=== PATIENT | male | born 1955 | race Caucasian/White ===

== ENCOUNTER 2019-07-25 14:00 | Emergency (ER) | payer BC ==
--- OUTSIDE RECORDS SUMMARY | 2019-07-25 14:05 | XMS REPORT | Continuity of Care Document ---
:1955 External Reference #:[id number] Author Name Rui Rouse M.D. 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 Problems Description No Information Available Social History Type Date Description Comments Sex Unknown ETOH Use Drinks 3 Alcoholic Beverages Per Week Tobacco Use Start: Unknown Patient has never smoked Smoking Status Reviewed: 06/22/19 Patient has never smoked Exercise Type/Frequency Exercises regularly Allergies, Adverse Reactions, Alerts Active Allergies Reaction Severity Comments Date Sulfa Antibiotics childhood reaction unknown 09/05/2018 Inactive Allergies NKDA 09/05/2018 Medications Active Medications SIG Qnty Indications Ordering Provider Date Sudafed as needed Unknown 30mg Tablets Ibuprofen Unknown Immunizations Description No Information Available Vital Signs Date Vital Result Comment 06/22/2019 9:17am Height 73 inches 6'1" Weight 177.00 lb Heart Rate 83 /min BP Systolic 138 mmHg BP Diastolic 92 mmHg Respiratory Rate 16 /min Body Temperature 95.9 F Pain Level 4 O2 % BldC Oximetry 98 % BMI (Body Mass Index) 23.3 kg/m2 09/05/2018 11:00am Height 73 inches 6'1" Weight 170.00 lb Heart Rate 78 /min BP Systolic Sitting 124 mmHg BP Diastolic Sitting 80 mmHg Respiratory Rate 18 /min Body Temperature 98.3 F BMI (Body Mass Index) 22.4 kg/m2 Results Description No Information Available Procedures Description No Information Available Medical Devices Description No Information Available Encounters Description No Information Available Assessments Date Code Description Provider 06/22/2019 M16.11 Unilateral primary osteoarthritis, right hip Rui Rouse M.D. 06/22/2019 M76.51 Patellar tendinitis, right knee Rui Rouse M.D. Plan of Treatment Future Appointment(s):08/05/2019 8:15 am - Rui Rouse M.D. at [facility] at [id number]/24/2019 8:45 am - Rui Rouse M.D. at [facility] at [id number]/22/2019 - Rui Rouse M.D.M16.11 Unilateral primary osteoarthritis, right hipFollow up:Follow up: Please arrange a right hip injection with Dr. Esquivel in the next days or [address] Rouse follow up as needed OK to remain active as able walk, bike, swim OK to use walking sticks [id number] Patellar tendinitis, right knee Functional Status Description No Information Available Mental Status Description No Information Available Referrals Description No Information Available
--- OUTSIDE RECORDS SUMMARY | 2019-07-25 14:05 | XMS REPORT | Continuity of Care Document ---
:1955 External Reference #:[id number] Author Name Chuckie Esquivel MD (transmitted by agent of provider Meaghan Dominique) Address [address] [place] [address] Care Team Providers Name Role Phone Siddharth Quarles MD - Family Medicine Care Team Information Egg Gatherer [phone] Problems Description No Information Available Social History Type Date Description Comments Sex Unknown ETOH Use Drinks 3 Alcoholic Beverages Per Week Tobacco Use Start: Unknown Patient has never smoked Smoking Status Reviewed: 06/24/19 Patient has never smoked Exercise Type/Frequency Exercises regularly Allergies, Adverse Reactions, Alerts Active Allergies Reaction Severity Comments Date Sulfa Antibiotics childhood reaction unknown 09/05/2018 Inactive Allergies NKDA 09/05/2018 Medications Active Medications SIG Qnty Indications Ordering Provider Date Sudafed as needed Unknown 30mg Tablets Ibuprofen Unknown Immunizations Description No Information Available Vital Signs Date Vital Result Comment 06/24/2019 1:10pm Height 73 inches 6'1" Heart Rate 76 /min BP Systolic 126 mmHg BP Diastolic 80 mmHg Respiratory Rate 16 /min Body Temperature 98.6 F Pain Level 4 06/22/2019 9:17am Height 73 inches 6'1" Weight 177.00 lb Heart Rate 83 /min BP Systolic 138 mmHg BP Diastolic 92 mmHg Respiratory Rate 16 /min Body Temperature 95.9 F Pain Level 4 O2 % BldC Oximetry 98 % BMI (Body Mass Index) 23.3 kg/m2 Results Test Date Facility Test Result H/L Range Note Xray 06/24/2019 [facility] In House Inj/Aspir Major JT Or Bursa W/ <pending> US Procedures Date Code Description Status 06/24/2019 Inj/Aspir Major JT Or Bursa W/ US Completed Medical Devices Description No Information Available Encounters Description No Information Available Assessments Date Code Description Provider 06/24/2019 M16.11 Unilateral primary osteoarthritis, right Chuckie Esquivel MD hip 06/24/2019 M25.551 Pain in right hip Chuckie Esquivel MD 06/22/2019 M16.11 Unilateral primary osteoarthritis, right Rui Rouse M.D. hip 06/22/2019 M76.51 Patellar tendinitis, right knee Rui Rouse M.D. Plan of Treatment Future Appointment(s):08/05/2019 8:15 am - Rui Rouse M.D. at [facility] at [id number]/24/2019 - Chuckie Esquivel, MDM16.11 Unilateral primary osteoarthritis, right hipFollow up:Follow up: As [id number] Pain in right hip Functional Status Description No Information Available Mental Status Description No Information Available Referrals Description No Information Available
[2019-07-25 14:09] VITALS: BP 137/74
--- NOTE | 2019-07-25 14:09 | UC ---
Abdominal Pain Male HPI - HPI Summary HPI Summary: 63 yo male presents with lower abdominal pain. He tells me that 2 days ago he ate a [employer] salad and since that time has noticed some lower abdominal discomfort and constipation. He tells me that he does have a long history of constipation. He is scheduled to see his PCP in 3 days and is going to schedule a colonoscopy at that point. He has been taking ibuprofen, which helps. He took metamucil yesterday and had BM x2 this morning with good improvement of his discomfort. He is eating and drinking well. Denies fever, chills, n/v, dysuria, or rectal bleeding. - History of Current Complaint Stated Complaint: R/O FOOD POSING Time Seen by Provider: 07/25/19 14:08 Hx Obtained From: Patient Onset/Duration: Sudden Onset Severity Initially: Moderate Severity Currently: Mild Pain Intensity: 3 Pain Scale Used: 0-10 Numeric - Allergies/Home Medications Allergies/Adverse Reactions: Allergies Allergy/AdvReac Type Severity Reaction Status Date / Time Sulfa (Sulfonamide Allergy Unknown Verified 07/25/19 14:09 Antibiotics) Reaction Details Home Medications: Home Medications Ibuprofen 400 mg PO ONCE PRN 07/25/19 [History Confirmed 07/25/19] Pseudoephedrine HCl [Sudafed] 1 tab PO DAILY PRN 07/25/19 [History Confirmed ] PMH/Surg Hx/FS Hx/Imm Hx - Additional Past Medical History Additional PMH: Constipation - Surgical History Surgical History: Yes Surgery Procedure, Year, and Place: umbilical hernia 8 yrs ago - Family History Known Family History: Positive: None - Social History Occupation: Employed Full-time Lives: With Family Alcohol Use: Occasionally Substance Use Type: None Smoking Status (MU): Never Smoked Tobacco Review of Systems All Other Systems Reviewed And Are Negative: No Constitutional: Positive: Negative Skin: Positive: Negative Respiratory: Positive: Negative Cardiovascular: Positive: Negative Gastrointestinal: Positive: Abdominal Pain Genitourinary: Positive: Negative Neurological: Positive: Negative Psychological: Positive: Negative Physical Exam - Summary Physical Exam Summary: GENERAL: NAD. WDWN. No pain distress. SKIN: No rashes, sores, or open wounds. NECK: Supple. Nontender. No lymphadenopathy. CHEST: CTAB. No r/r/w. No accessory muscle use. Breathing comfortably and in no distress. CV: RRR. Pulses intact. Brisk cap refill. ABDOMEN: Mild TTP Lower abdomen. Soft. No distention or guarding. No CVA tenderness. Bowel sounds present NEURO: Alert. PSYCH: Age appropriate behavior. Triage Information Reviewed: Yes Vital Signs: Vital Signs: Temp Pulse Resp BP Pulse Ox 100.1 F 93 18 137/74 95 07/25/19 14:04 07/25/19 14:04 07/25/19 14:04 07/25/19 14:04 07/25/19 14:04 Vital Signs Reviewed: Yes Abd Pain Male Course/Dx - Course Course Of Treatment: Low suspicion for infectious disease such as e. coli or salmonella at this time as he is not having any diarrhea. He states he has no hx of diverticulitis/losis and has had colonoscopies in the past. Discussed with him that his symptoms could be related to constipation as he is feeling better s/p BM x2 today, but diverticulitis is also a consideration. Discussed that we do not have CT available at the today and recommended going to the ER for further evaluation, but pt declined and prefers to monitor his symptoms and if they do not continue to improve - will go to the ED. He has a routine appt with his PCP on saturday - advised to keep this. - Differential Dx/Clinical Impression Provider Diagnosis: Lower abdominal pain, Constipated Discharge ED - Sign-Out/Discharge Documenting (check all that apply): Patient Departure All imaging exams completed and their final reports reviewed: No Studies - Discharge Plan Condition: Stable Disposition: HOME Patient Education Materials: Diverticulitis (ED), Constipation (ED), Abdominal Pain (ED) Referrals: Siddharth Quarles MD [Primary Care Provider] - Additional Instructions: If you develop a fever, shortness of breath, chest pain, new or worsening symptoms - please call your PCP or go to the ED immediately. Your symptoms today do not seem concerning for e. coli, salmonella, or a bacterial infectious bowel disease. You could have a mild case of diverticulitis, however you have no history of this and your symptoms have improved after having bowel movements. I recommend that you monitor your symptoms and if your abdominal pain worsens, you develop nausea, vomiting, or a fever - please go to the ER for further evaluation. Please keep your appointment with your PCP for Saturday - Billing Disposition and Condition Condition: STABLE Disposition: Home - Attestation Statements Provider Attestation: I was available for consult. This patient was seen by the [facility]. The patient was not presented to , seen by or examined by -Khushi Pollard MD
== END 2019-07-25 14:32 | disposition home or self-care (01) ==
LOC: UCEAST 14:00
DX: R10.30 Lower abdominal pain, unspecified (principal); K59.00 Constipation, unspecified; Z88.2 Allergy status to sulfonamides
CPT/HCPCS: 99211; G0463

== ENCOUNTER 2020-05-24 05:49 | Observation (INO) ==
[2020-05-24] MEDS ORDERED: Famotidine IV 10 MG/ML 2 ml VIAL (20 mg) IV ONE (06:00)
[2020-05-24] MEDS ORDERED: Buffered Lidocaine 1% SYRIN 1 ml INTRADERM ONE (06:00)
[2020-05-24] MEDS ORDERED: Lactated Ringers 1000 ml BAG 1,000 ML IV SCH ×2 (06:00→11:00)
[2020-05-24] MEDS ORDERED: Famotidine IV 10 MG/ML 2 ml VIAL (20 mg) ONE (06:12)
[2020-05-24] MEDS ORDERED: ceFAZolin 2 GM PREMIX 2 GM/50 ML BAG ONE (06:13)
[2020-05-24] MEDS ORDERED: fentaNYL 100 mcg/2 ml 50 MCG/ML VIAL ONE ×4 (07:10→10:58)
[2020-05-24] MEDS ORDERED: Midazolam 2 mg/2 ml VIAL 1 mg/ml 2 ml VIAL (2 mg) ONE ×2 (07:10→07:57)
[2020-05-24] MEDS ORDERED: Bupivacaine 0.5% SDV PF 30ML VIAL ONE (07:53)
[2020-05-24] MEDS ORDERED: Phenylephrine 40 mcg/mL 10mL (400mcg) SYRINGE ONE (07:53)
[2020-05-24] MEDS ORDERED: Dexamethasone IV 4 MG/ML VIAL 1 ml VIAL ONE (07:55)
[2020-05-24] MEDS ORDERED: Propofol 10 MG/ML 20 ML BTL ONE ×4 (07:55→09:35)
[2020-05-24] MEDS ORDERED: diPHENhydraMINE IV 50 MG/ML 1 ml VIAL (BENADRYL) ONE (08:04)
[2020-05-24] MEDS ORDERED: Acetaminophen IV 1 GM/100ML 100 ML ONE (08:48)
[2020-05-24] MEDS ORDERED: DiMENhydriNATE IV 50 mg/ml 1 ml VIAL IV PUSH PRN (08:53)
[2020-05-24] MEDS ORDERED: Naloxone 0.4 mg VIAL 0.4 mg/ml 1 ml VIAL IV PRN (08:53)
[2020-05-24] MEDS ORDERED: Ondansetron 4 mg VIAL 2 MG/ML 2 ml VIAL IV PRN ×2 (08:53→10:11)
[2020-05-24] MEDS ORDERED: EPHEDrine (Pressors) 50 MG/ML VIAL ONE (09:00)
[2020-05-24] MEDS ORDERED: Magnesium Hydroxide LIQ 30 ML UDC PO PRN (10:11)
[2020-05-24] MEDS ORDERED: Morphine 2 MG/ML SYRINGE IV PRN (10:11)
[2020-05-24] MEDS ORDERED: diPHENhydraMINE 25 mg TAB PO PRN (10:11)
[2020-05-24] MEDS ORDERED: Lactulose 30 ml UDC PO PRN (10:11)
[2020-05-24] MEDS ORDERED: Polyethylene Glycol 3350 17 GM PACKET PO PRN (10:11)
[2020-05-24] MEDS ORDERED: Ondansetron ODT 4 mg TAB 4 MG TAB PO PRN (10:11)
[2020-05-24] MEDS ORDERED: diPHENhydraMINE IV 50 MG/ML 1 ml VIAL (BENADRYL) IV PRN (10:11)
[2020-05-24] MEDS: fentaNYL 100 mcg/2 ml 50 MCG/ML VIAL IV PRN ×5 (10:19→10:59)
[2020-05-24] MEDS ORDERED: ceFAZolin 1 GM ADVAN 1 GM in NS 0.9% 50 ML 50 ML IVPB SCH (16:00)
[2020-05-24 17:13] VITALS: BP 112/52
[2020-05-24] MEDS ORDERED: Magnesium Hydroxide LIQ 30 ML UDC PO SCH (21:00)
[2020-05-25] MEDS ORDERED: Vitamin THERAPEUTIC TAB PO SCH (09:00)
== END 2020-05-24 18:07 | disposition home or self-care (01) ==
LOC: INTOOBSV 05:49 → AA 05:49 → SSU 10:12
PROVIDERS: ADMIT Orthopaedic Surgery; ATTEND Orthopaedic Surgery